=== PATIENT | female | born 1985 | race Caucasian/White ===

== ENCOUNTER 2019-07-24 20:03 | Emergency (ER) | payer BC ==
[~2019-07-24] VITALS: Ht 157.4 cm; Wt 77.1 kg
[~2019-07-24 20:03] MED LIST: ANAPROX DS550 MG PO; ATARAX25 MG PO; CIPRO500 MG PO; CLINDAMYCIN HC300 MG PO; CYCLOBENZAPRINE10 MG PO; HYDROCODONE BIT1 T11 PO; IBU800 MG PO; KEFLEX500 MG PO; KENALOG 0.1%80 GM T; KENALOG0.5% TP; MOTRIN600 MG PO; MOTRIN800 MG PO; PREDNICOT20 MG PO; PREDNISONE20 M1 PO; PRENTAL 1 PLUS1 TAB PO; VICODIN ES 7501 TAB PO; VISTARIL25 M1 PO; ZOFRAN4 MG PO; ZYRTEC10 MG PO
[2019-07-24 20:06] VITALS: BP 121/84
[2019-07-24] MEDS ORDERED: PREDNISONE20 M1 PO (20:31)
[2019-07-24] MEDS ORDERED: LIDEX 0.05% CRE15 GM T (20:31)
== END 2019-07-24 20:43 | disposition home or self-care (01) ==
LOC: ED 20:03
DX: L30.9 Dermatitis, unspecified (principal); Z79.899 Other long term (current) drug therapy; Z88.2 Allergy status to sulfonamides